=== PATIENT | female | born 1975 ===

== ENCOUNTER 2022-12-11 10:12 | Outpatient (REF) | payer MEDICAID, SELFPAY ==
--- NOTE | ~2022-12-11 | XR_ITS ---
EXAMINATION: X-ray bilateral knees CLINICAL INFORMATION: Knee pain COMPARISON: None TECHNIQUE: Left knee 3 views. Right knee 3 views. FINDINGS: Left knee: Alignment is anatomic. Joint spaces are maintained. No visible acute fracture or dislocation. No significant effusion. No suspicious calcification. Right knee: Alignment is anatomic. Joint spaces are relatively maintained. Small marginal spurring in the medial and lateral compartment. Prominent marginal patellar osteophytes. There is heterogeneous mixed lucency and sclerosis in the patella. Small effusion. No visible acute fracture or dislocation. There is a 8 mm calcific/ossific density projected at the lateral femoral condyle, nonspecific, could represent a loose body. XR/XR knee LT 3V IMPRESSION: Left knee: No evidence of acute osseous abnormality. Right knee: -Mild tricompartment osteoarthritis. -Heterogeneous mixed lucency and sclerosis in the patella, of indeterminate etiology. Further evaluation with MRI as clinically warranted. -8mm density lateral to the lateral femoral condyle, has a chronic appearance, could represent a loose body.
--- NOTE | ~2022-12-11 | XR_ITS ---
EXAMINATION: X-ray bilateral knees CLINICAL INFORMATION: Knee pain COMPARISON: None TECHNIQUE: Left knee 3 views. Right knee 3 views. FINDINGS: Left knee: Alignment is anatomic. Joint spaces are maintained. No visible acute fracture or dislocation. No significant effusion. No suspicious calcification. Right knee: Alignment is anatomic. Joint spaces are relatively maintained. Small marginal spurring in the medial and lateral compartment. Prominent marginal patellar osteophytes. There is heterogeneous mixed lucency and sclerosis in the patella. Small effusion. No visible acute fracture or dislocation. There is a 8 mm calcific/ossific density projected at the lateral femoral condyle, nonspecific, could represent a loose body. XR/XR knee RT 3V IMPRESSION: Left knee: No evidence of acute osseous abnormality. Right knee: -Mild tricompartment osteoarthritis. -Heterogeneous mixed lucency and sclerosis in the patella, of indeterminate etiology. Further evaluation with MRI as clinically warranted. -8mm density lateral to the lateral femoral condyle, has a chronic appearance, could represent a loose body.
== END 2022-12-11 10:13 | disposition home or self-care (01) ==
LOC: HO.HOSX 10:12
PROVIDERS: Visit Provider Orthopaedic Surgery
DX: S83.241A Other tear of medial meniscus, current injury, right knee, initial encounter (principal); M25.562 Pain in left knee
CPT/HCPCS: 73562; 99202

== ENCOUNTER 2022-12-11 11:30 | Outpatient (AMB) | payer MEDICAID, SELFPAY ==
--- NOTE | 2022-12-11 11:44 | A.OFFVIS_ITS ---
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 Patient reports ongoing pain for 10 years. The patient states that she injured her right knee 10 years ago when she twisted it after stepping on a tree root. She states that her right knee will give out several times per day. She states that her left knee pain is tolerable to her at this point. She has had injections in the past which gave her minimal relief. He has also done physical therapy for 12 weeks over the last 6 months which aggravated her pain. 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 [employer] Physical Exam Const Other: Well-nourished well-developed very friendly female awake alert and oriented x3 in no acute distress Extrem Other: Bilateral lower extremity examination shows good capillary refill, no skin lesions noted, normal sensation light touch Right knee examination shows a minimal effusion, minimal crepitus with range of motion, tenderness along her medial joint line, positive Keiry's test, no instability Left knee examination shows a minimal effusion, minimal crepitus with range of motion, negative Keiry's test Results Reviewed Results Reviewed: X-rays of the patient's bilateral knees taken today show mild to moderate diffuse degenerative changes most significant in the patellofemoral joint, no acute bony abnormalities Assessment & Plan Assessment & Plan (1) Tear of medial meniscus of right knee: Code(s): S83.241A - Other tear of medial meniscus, current injury, right knee, initial encounter Plan: Ms. Woods presents with progressively worsening right knee pain and mechanical symptoms most likely due to a tear of her medial meniscus. Thus, I will send the patient for an MRI of her right knee for further evaluation. I will see her back after the imaging study to discuss the findings and treatment options. She will call me prior to that time should her symptoms worsen in any way. I spent 22 minutes in reviewing the patient's records and imaging studies, seeing the patient and documenting in the medical record. Orders: Orders XR knee LT 3V Today M25.562 - Pain in left knee XR knee RT 3V Today M25.561 - Pain in right knee MR knee RT wo con Today S83.241A - Other tear of medial meniscus, current injury, right knee, initial encounter Coding Level of Care Code New Pt Level 2 (97213) Diagnoses Tear of medial meniscus of right knee S83.241A
== END 2022-12-11 12:12 | disposition home or self-care (01) ==
PROVIDERS: Visit Provider Orthopaedic Surgery
DX: S83.241A Other tear of medial meniscus, current injury, right knee, initial encounter (principal)
CPT/HCPCS: 99202